=== PATIENT | female | born 1975 | race Caucasian/White ===

== ENCOUNTER 2017-08-01 11:41 | Emergency (ER) | payer SELFPAY ==
[~2017-08-01 11:41] MED LIST: CEPHALEXIN 500 MG CAP PO SCH
[2017-08-01 11:48] VITALS: O2SAT 98
[2017-08-01 12:23] LABS: COLOR YELLOW; LEUKOCYTE ESTERASE,URINE 3+ (NEGATIVE); NITRITE,URINE NEGATIVE (NEGATIVE)
[2017-08-01] MEDS ORDERED: NS 1,000 ML IV ONE (12:25)
[2017-08-01] MEDS ORDERED: ONDANSETRON 4 MG/2 ML VIAL IVP ONE (12:25)
[2017-08-01] MEDS ORDERED: KETOROLAC 30 MG/1 ML SDV IVP ONE (12:25)
[2017-08-01 12:30] LABS: BACTERIA 4+ /hpf (NONE SEEN); MUCUS TRACE /lpf (NONE-1+); RBC,URINE 25-50 /hpf (0-3); WBC,URINE 50-182 /hpf (0-3)
[2017-08-01] MEDS ORDERED: IOPAMIDOL (ISOVUE-300) 100 ML BTL ONE (13:14)
[2017-08-01 13:20] LABS: % IMMATURE GRANULYOCYTES 0.1 % (0.0-1.1); ABSOLUTE IMMATURE GRANULOCYTES 0.01 10^3/uL (0.00-0.10); ADD DIFF? NO; ADD MORPH? NO; ADD SCAN? NO; ATYPICAL LYMPHOCYTE FLAG 20 (0-99); FRAGMENT RBC FLAG 0 (0-99); HEMATOCRIT 42.3 % (38.0-47.0); HEMOGLOBIN 14.1 g/dL (12.6-16.3); LEFT SHIFT FLG 0 (0-99); LIPEMIA HEMOLYSIS FLAG 80 (0-99); MEAN CELL HEMOGLOBIN 31.5 pg (27.9-34.1); MEAN CELL HEMOGLOBIN CONCENTR. 33.3 g/dL (32.4-36.7); MEAN CELL VOLUME 94.4 fL (81.5-99.8); MEAN PLATELET VOLUME 10.3 fL (8.7-11.7); PLATELET CLUMPS FLAG 0 (0-99); PLATELET COUNT 217 10^3/uL (150-400); RED BLOOD CELL COUNT 4.48 10^6/uL (4.18-5.33); RED CELL DISTRIBUTION WIDTH 13.6 % (11.5-15.2)
--- NOTE | 2017-08-01 13:27 | EDPHY ---
General Narrative: CHIEF COMPLAINT: Flank pain, abdominal pain, urinary complaints HISTORY OF PRESENT ILLNESS: Patient complains of 5 days of dysuria and frequent urination. She feels as though she has a kidney urinary tract infection. Started only with discomfort in for urination, but now for 2 days she has had right flank pain right abdominal pain. [id number] at 1st. Now severe. Nausea but no vomiting. No fever but some chills. No bloody urine. No diarrhea. No chest pain shortness of breath. No left-sided or epigastric abdominal pain. Does have a history of stones in the past that did require stent placement. This was remotely another state. No other associated complaints or modifying factors. REVIEW OF SYSTEMS: Ten systems reviewed and are negative unless otherwise noted in the HPI PAST MEDICAL HISTORY: nephrolithiasis with stent placement and removal PAST SURGICAL HISTORY: ureteral stents SOCIAL HISTORY: Smokes tobacco. Occasional alcohol. No illicit substance use. Recently relocated from [facility]. She is currently homeless living in a car. FAMILY HISTORY: Noncontributory EXAMINATION General Appearance: Alert, no distress Head: normocephalic, atraumatic Eyes: Pupils equal and round, no conjunctival pallor or injection ENT, Mouth: Mucous membranes moist Neck: Normal inspection, supple, non-tender Respiratory: Lungs are clear to auscultation Cardiovascular: Regular rate and rhythm. No murmur Gastrointestinal: Abdomen is soft and nondistended. There is right CVA tenderness that is moderate. Right-sided abdominal tenderness that is mild. No guarding. No rigidity. No distention. Back: non-tender, no bony abnormalities Neurological: A&O, nonfocal, normal gait Skin: Warm and dry, no rash Extremities: Nontender, no pedal edema Psychiatric: Mood and affect normal DIFFERENTIAL DIAGNOSES: Including but not limited to pyelonephritis, nephrolithiasis, ureterolithiasis, hydronephrosis, cystitis, urethritis, UTI MDM: 12:25 p.m. Urinary symptoms as well as abdominal flank pain. Given the patient's history order CT scan to rule out nephrolithiasis or pyelonephritis. Vital signs are within normal limits. Laboratory studies pending. 1:30 p.m. Evidence of urinary tract infection, I will treat with IV Rocephin. 2:20 p.m. Notified by radiologist Dr. William. CT scan of the abdomen pelvis reveals thickening of the lower pole/collecting system of the right kidney as well as the ureter and bladder. No stones. No hydronephrosis. No thickening of the right renal parenchyma. I have re-evaluated the patient. She is resting comfortably in no acute distress. Vital signs stable. No vomiting. Pain is tolerable. She has received 1 L IV fluid and 1st dose of antibiotic IV. I do feel she is stable for discharge home. Case management has met with her and provided assistance for [facility] as well as shelters. She has ED precautions and urine culture has been sent. She is discharged home stable condition. - Diagnostics Imaging Results: Imaging Impressions Abdomen CT 08/01/17 12:25 Impression: 1. Moderate diffuse thickening of the renal collecting system on the right from the renal pelvis through the distal ureter at the UVJ without evidence for obstruction or mass. There is also mild diffuse bladder wall thickening. Consider pyelonephritis and cystitis without renal parenchymal involvement. 2. No CT evidence of appendicitis, abscess or bowel obstruction. 3. Hepatic steatosis Findings discussed with Oniel Houston PAC at 14:14 hour, 08/01/2017. - History Smoking Status: Current every day smoker - Objective Vital Signs: Initial Vital Signs Temperature (C) 97.7 F 08/01/17 11:45 Heart Rate 88 08/01/17 11:45 Respiratory Rate 18 08/01/17 11:45 Blood Pressure 133/86 H 08/01/17 11:45 O2 Sat (%) 98 08/01/17 11:45 O2 Delivery Mode Room Air Allergies/Adverse Reactions: No Known Allergies Allergy (Unverified 08/01/17 11:46) Home Medications: Medication Instructions Recorded Cephalexin [Keflex (*)] 500 mg PO TID #30 cap 08/01/17 Laboratory Results: Laboratory Results 08/01/17 13:10 08/01/17 13:10 08/01/17 08/01/17 08/01/17 13:10 13:10 13:10 WBC 8.95 10^3/uL 10^3/uL (3.80-9.50) RBC 4.48 10^6/uL 10^6/uL (4.18-5.33) Hgb 14.1 g/dL g/dL (12.6-16.3) Hct 42.3 % % (38.0-47.0) MCV 94.4 fL fL (81.5-99.8) MCH 31.5 pg pg (27.9-34.1) MCHC 33.3 g/dL g/dL (32.4-36.7) RDW 13.6 % % (11.5-15.2) Plt Count 217 10^3/uL 10^3/uL (150-400) MPV 10.3 fL fL (8.7-11.7) Neut % (Auto) 66.6 % % (39.3-74.2) Lymph % (Auto) 23.8 % % (15.0-45.0) Pleasants % (Auto) 7.8 % % (4.5-13.0) Eos % (Auto) 1.5 % % (0.6-7.6) Baso % (Auto) 0.2 % L % (0.3-1.7) Nucleat RBC Rel Count 0.0 % % (0.0-0.2) Absolute Neuts (auto) 5.96 10^3/uL 10^3/uL (1.70-6.50) Absolute Lymphs (auto) 2.13 10^3/uL 10^3/uL (1.00-3.00) Absolute Monos (auto) 0.70 10^3/uL 10^3/uL (0.30-0.80) Absolute Eos (auto) 0.13 10^3/uL 10^3/uL (0.03-0.40) Absolute Basos (auto) 0.02 10^3/uL 10^3/uL (0.02-0.10) Absolute Nucleated RBC 0.00 10^3/uL 10^3/uL (0-0.01) Immature Gran % 0.1 % % (0.0-1.1) Immature Gran # 0.01 10^3/uL 10^3/uL (0.00-0.10) Sodium 136 mEq/L mEq/L (134-144) Potassium 4.3 mEq/L mEq/L (3.5-5.2) Chloride 104 mEq/L mEq/L (97-110) Carbon Dioxide 20 mEq/l L mEq/l (22-31) Anion Gap 12 mEq/L mEq/L (8-16) BUN 11 mg/dL mg/dL (7-23) Creatinine 0.6 mg/dL mg/dL (0.6-1.0) Estimated GFR > 60 Glucose 80 mg/dL mg/dL (70-100) Calcium 8.6 mg/dL mg/dL (8.5-10.4) Total Bilirubin 0.8 mg/dL mg/dL (0.1-1.4) Conjugated Bilirubin 0.3 mg/dL mg/dL (0.0-0.5) Unconjugated Bilirubin 0.5 mg/dL mg/dL (0.0-1.1) AST 112 IU/L H IU/L (14-46) ALT 92 IU/L H IU/L (9-52) Alkaline Phosphatase 56 IU/L IU/L (38-126) Total Protein 6.9 g/dL g/dL (6.3-8.2) Albumin 3.7 g/dL g/dL (3.5-5.0) Lipase 67 IU/L IU/L (23-300) Beta HCG, Qual NEGATIVE Urine Color Urine Appearance Urine pH Ur Specific Richards Urine Protein Urine Ketones Urine Blood Urine Nitrate Urine Bilirubin Urine Urobilinogen Ur Leukocyte Esterase Urine RBC Urine WBC Ur Epithelial Cells Urine Bacteria Urine Mucus Urine Glucose 08/01/17 12:00 WBC RBC Hgb Hct MCV MCH MCHC RDW Plt Count MPV Neut % (Auto) Lymph % (Auto) Pleasants % (Auto) Eos % (Auto) Baso % (Auto) Nucleat RBC Rel Count Absolute Neuts (auto) Absolute Lymphs (auto) Absolute Monos (auto) Absolute Eos (auto) Absolute Basos (auto) Absolute Nucleated RBC Immature Gran % Immature Gran # Sodium Potassium Chloride Carbon Dioxide Anion Gap BUN Creatinine Estimated GFR Glucose Calcium Total Bilirubin Conjugated Bilirubin Unconjugated Bilirubin AST ALT Alkaline Phosphatase Total Protein Albumin Lipase Beta HCG, Qual Urine Color YELLOW Urine Appearance TURBID Urine pH 6.0 (5.0-7.5) Ur Specific Richards 1.010 (1.002-1.030) Urine Protein 2+ H (NEGATIVE) Urine Ketones NEGATIVE (NEGATIVE) Urine Blood 2+ H (NEGATIVE) Urine Nitrate NEGATIVE (NEGATIVE) Urine Bilirubin NEGATIVE (NEGATIVE) Urine Urobilinogen NEGATIVE EU EU (0.2-1.0) Ur Leukocyte Esterase 3+ H (NEGATIVE) Urine RBC 25-50 /hpf H /hpf (0-3) Urine WBC 50-182 /hpf H /hpf (0-3) Ur Epithelial Cells 2+ /lpf H /lpf (NONE-1+) Urine Bacteria 4+ /hpf H /hpf (NONE SEEN) Urine Mucus TRACE /lpf /lpf (NONE-1+) Urine Glucose NEGATIVE (NEGATIVE) Medications Given: Discontinued Medications Sodium Chloride (Ns) 1,000 mls @ 0 mls/hr IV EDNOW ONE; Wide Open PRN Reason: Protocol Stop: 08/01/17 12:26 Last Admin: 08/01/17 12:55 Dose: 1,000 mls Ceftriaxone Sodium/Dextrose (Rocephin 1 Gm (Premix)) 50 mls @ 100 mls/hr IV EDNOW ONE PRN Reason: Protocol Stop: 08/01/17 13:56 Last Admin: 08/01/17 14:06 Dose: 50 mls Ketorolac Tromethamine (Toradol) 15 mg IVP EDNOW ONE Stop: 08/01/17 12:26 Last Admin: 08/01/17 12:55 Dose: 15 mg Ondansetron HCl (Zofran) 4 mg IVP EDNOW ONE Stop: 08/01/17 12:26 Last Admin: 08/01/17 12:55 Dose: 4 mg Departure - Departure Disposition: Home, Routine, Self-Care Clinical Impression: Flank pain UTI (urinary tract infection) Qualifiers: Urinary tract infection type: acute cystitis Hematuria presence: with hematuria Qualified Code(s): N30.01 - Acute cystitis with hematuria Condition: Good Instructions: How to Stop Smoking (ED), Urinary Tract Infection in Women (ED) Additional Instructions: 1. Medication as provided until completion 2. Increase fluid intake 3. Return to ER for worsening pain, vomiting, fever, chills Referrals: NONE *PRIMARY CARE P,. [Primary Care Provider] - As per Instructions [facility],. [Clinic] - As per Instructions Makenna Zhao MD [Medical Doctor] - As per Instructions Prescriptions: Cephalexin [Keflex (*)] 500 mg PO TID #30 cap
[2017-08-01 13:42] LABS: ALANINE AMINOTRANSFERASE 92 IU/L (9-52); ALBUMIN 3.7 g/dL (3.5-5.0); ALKALINE PHOSPHATASE 56 IU/L (38-126); ANION GAP 12 mEq/L (8-16); ASPARTATE AMINOTRANSFERASE 112 IU/L (14-46); BILIRUBIN,TOTAL 0.8 mg/dL (0.1-1.4); BILIRUBIN-CONJUGATED 0.3 mg/dL (0.0-0.5); BILIRUBIN-UNCONJUGATED 0.5 mg/dL (0.0-1.1); CALCIUM 8.6 mg/dL (8.5-10.4); CARBON DIOXIDE 20 mEq/l (22-31); CHLORIDE 104 mEq/L (97-110); CREATININE 0.6 mg/dL (0.6-1.0); GLOMERULAR FILTRATION RATE > 60; GLUCOSE 80 mg/dL (70-100); POTASSIUM 4.3 mEq/L (3.5-5.2); SODIUM 136 mEq/L (134-144); TOTAL PROTEIN 6.9 g/dL (6.3-8.2)
[2017-08-01 14:49] VITALS: BP 124/88; PULSE 72; RESP 16; TEMP 98.4
== END 2017-08-01 14:47 | disposition home or self-care (01) ==
DX: N30.01 Acute cystitis with hematuria (principal); B96.20 Unspecified Escherichia coli [E. coli] as the cause of diseases classified elsewhere; F17.200 Nicotine dependence, unspecified, uncomplicated; E86.9 Volume depletion, unspecified
CPT/HCPCS: 96365; 96374; J0696; J1885; J2405; Q9967